=== PATIENT | female | born 1970 | race Caucasian/White ===

== ENCOUNTER 2025-01-14 10:53 | Emergency (ER) | payer BC, SELFPAY ==
--- NOTE | ~2025-01-14 | XR_ITS ---
EXAMINATION: XR knee RT min 4V DATE: 01/14/2025 11:38 INDICATION: Right knee pain post fall 2 weeks prior TECHNIQUE: Anteroposterior, 2 oblique and crosstable lateral views of the right knee were obtained COMPARISON: None. FINDINGS: No fracture. Mild right genu varum with moderate to severe joint space narrowing in the medial compar tment. Moderate size marginal osteophytes in all 3 compartments. No right knee joint effusion. Soft t issues are unremarkable. IMPRESSION: 1. No right knee joint effusion or acute osseous abnormality. 2. Tricompartmental osteoarthritis at the right knee, moderate to severe in the medial compartment. Reviewed, dictated and finalized at location A. [employer]
--- OUTSIDE RECORDS SUMMARY | 2025-01-14 11:09 | XMS_ITS | Clinical Summary ---
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 Okay to return to work with light duty. No heavy lifting greater than 20 lb for 4 weeks. No submerging incisions for 4 weeks. Please call for any further questions or concerns. 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 Gender Identity Not on file Sexual Orientation Not on file Obstetrics History Last Filed Vital Signs Vital Sign Reading Time Taken Comments Blood Pressure 118/72 06/20/2021 5:56 PM CDT Pulse 96 06/20/2021 5:56 PM CDT Temperature 36.6 C (97.8 F) 06/20/2021 5:56 PM CDT Respiratory Rate 16 06/20/2021 5:56 PM CDT Oxygen Saturation 92% 06/20/2021 5:56 PM CDT Inhaled Oxygen Concentration - - Weight 128.4 kg (283 lb) 06/20/2021 5:56 PM CDT Height 157.5 cm (5' 2 ) 06/20/2021 5:56 PM CDT Body Mass Index 51.76 06/20/2021 5:56 PM CDT Plan of Treatment Not on file Insurance [employer] Care Teams Roll Machine Operator Relationship Specialty Start Date End Date Arianne Starks MD [address] [place] [address] [place] [address] PCP - General 12/20/20
--- OUTSIDE RECORDS SUMMARY | 2025-01-14 11:09 | XMS_ITS | Clinical Summary ---
Author Organization [facility] Address [address] [place] [address] Care Team Providers Care Mini Bar Attendant Name Role Phone Unavailable Primary Care Provider Unavailabl e Source Comments [facility],non-owned Affiliates and Associated Physician Practices is amultiple site organization consisting of ambulatory clinics and hospital sitesin [place], [place], [place] and [place]. This disclosure is being madepursuant to the Care Everywhere program and may not contain all information available regarding this patient. Last updated 18.[facility] [employer] Social History Tobacco Use Types Packs/Day Years Used Date Smoking Tobacco: Never Assessed Sex and Gender Information Value Date Recorded Sex Assigned at Not on file Gender Identity Not on file Sexual Orientation Not on file Plan of Treatment Health Maintenance Due Date Last Done Comments COLOGUARD (AGES 45-75) - COL ON CA SCREENING 1972 COLON MONITORING 1972 COLONOSCOPY - COLON CA SCREENING 1972 CT COLONOGRAPHY - COLON CA SCREENING 1972 Colorectal Cancer Screening 1972 FIT - COLON CA SCREENING 1972 FLEX SIG - COLON CA SCREENING 1972 LIPID TESTING 1972 MAMMOGRAM 1972 PAP SMEAR 1972 HIV SCREENING 1987 HEPATITIS C SCREENING 04/14/1990 DTAP/TDAP/TD VACCINES (1 - Tdap) 1991 HEPATITIS B VACCINE (1 of 3 - 19+ 3-dose series) 1991 PNEUMOCOCCAL VACCINE 50+ (1 of 1 - PCV) 2022 ZOSTER VACCINE (1 of 2) 2022 COVID-19 VACCINE (1 - 2023-2 5 season) 2024 INFLUENZA VACCINE (#1) 2024 DEPRESSION SCREENING 11/23/2024 HIB VACCINE Aged Out No longer eligi ble based on patient's age to complete this topic HPV VACCINE Aged Out No longer eligi ble based on patient's age to complete this topic MENINGOCOCCAL (Group B) VACCINE Aged Out No longer eligible based on patient's age to complete this topic MENINGOCOCCAL VACCINE Aged Out No luz marina dez eligible based on patient's age to complete this topic PNEUMOCOCCAL VACCINE Aged Out No long er eligible based on patient's age to complete this topic
--- OUTSIDE RECORDS SUMMARY | 2025-01-14 11:09 | XMS_ITS | Referral Summary ---
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 Okay to return to work with light duty. No heavy lifting greater than 20 lb for 4 weeks. No submerging incisions for 4 weeks. Please call for any further questions or concerns. 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
--- OUTSIDE RECORDS SUMMARY | 2025-01-14 11:09 | XMS_ITS | Referral Summary ---
Author Organization [facility] Address [address] [address] Care Team Providers Care Manager Technical Support Name Role Phone Unavailable Primary Care Provider Unavailabl e Source Comments [facility],non-owned Affiliates and Associated Physician Practices is amultiple site organization consisting of ambulatory clinics and hospital sitesin [place], [place], [place] and [place]. This disclosure is being madepursuant to the Care Everywhere program and may not contain all information available regarding this patient. Last updated 18.[facility] Social History Tobacco Use Types Packs/Day Years Used Date Smoking Tobacco: Never Assessed Sex and Gender Information Value Date Recorded Sex Assigned at Not on file Gender Identity Not on file Sexual Orientation Not on file Plan of Treatment Not on file
--- OUTSIDE RECORDS SUMMARY | 2025-01-14 11:09 | XMS_ITS | Patient Health Summary ---
Author Organization [facility] Address [address] [place] [address] Care Team Providers Care Building Official Name Role Phone Unavailable Primary Care Provider Unavailabl e Note from [facility],non-owned Affiliates and Associated Physician Practices is amultiple site organization consisting of ambulatory clinics and hospital sitesin [place], [place], [place] and [place]. This disclosure is being madepursuant to the Care Everywhere program and may not contain all information available regarding this patient. Last updated 18.[facility] Social History Tobacco Use Types Packs/Day Years Used Date Smoking Tobacco: Never Assessed Sex and Gender Information Value Date Recorded Sex Assigned at Not on file Gender Identity Not on file Sexual Orientation Not on file Procedures * GROSS + MICRO EXAM(Performed 12/08/2002) Results * GROSS + MICRO EXAM (12/08/2002 8:09 AM BUFFER COPPER) Result CASE NUMBER [id number] Comment: ORDERING PHYSICIAN KISHAN MORRIS SPECIMEN TYPE Placenta Date 12/08/2002 Physician Pablito Morris Gross Description The specimen is received fresh in a container labeled with the patient's name and placenta . The specimen consists of two separate placental discs which are attached by a twisted layer of membrane. This area of attachment measures 3.0 x 3.2 cm. One placenta has one clamp and the other placenta has two clamps. There is no designation which placenta represents A or B either on the container and there is no requisition. The placenta with one clamp has attached membranes and cord and weighs 740 grams in aggregate. The placental disc of the placenta with one clamp measures 25.9 x 21.1 cm. and up to 2.0 cm. in thickness. The membranes are of a translucent pinkish-glez color and are attached marginally. The umbilical cord has a somewhat eccentric insertion, inserting up to 7.0 cm. from the nearest margin. It measures 39.5 cm. in length and up to 2.5 cm. in diameter and on cut section, three vessels are identified. The surface has a glistening bluish-glez color with the usual vascular arcade without nodules. The maternal surface is of a soft deep pinkish-glez color with a small amount of adherent clotted blood. On serial sectioning no infarcts are grossly identified. Food And Nutrition Supervisor sections are submitted as follows cassettes A and B, chorioamniotic membranes at site of attachment cassettes C through E, placenta with one clamp, (cassette C is membranes and cord, cassette D is surface, cassette E is maternal surface). The placenta with two clamps has attached membranes and cord which weighs 640 grams in aggregate. The placental disc measures 24.0 x 20.6 cm. and up to 2.0 cm. in thickness. The membranes are of a translucent pinkish-glez color and approximately 2/3 are attached marginally and 1/3 is attached circumvallate. There is a small amount of clotted blood attached to the membranes in the area of the circumvallate attachment. This blood clot measures 4.2 cm. in greatest dimensions. The umbilical cord has a somewhat eccentric insertion, inserting up to 5.5 cm. from the nearest margin and it measures 30.7 cm. in length and up to 2.2 cm. in diameter and on cut section, three vessels are identified. The surface has a glistening bluish-glez color with the usual vascular arcade without nodules. The maternal surface is of a soft deep pinkish-glez color with a small amount of adherent clotted blood. On serial sectioning there are no infarcts grossly identified. Food And Nutrition Supervisor sections of the placenta with two clamps are submitted as follows cassette F, umbilical cord and membranes cassette G, surface cassette H, maternal surface. SNR/bk Microscopic Exam Sections show a twin placenta. The dividing membranes show two layers of amnion and two layers of chorion, therefore it is dichorionic and diamnionic twin placenta. The membranes of both twin placentas are unremarkable. Acute inflammation is not seen. Both umbilical cords show three vessels with no evidence of funisitis or vasculitis. The placental discs of both twins show mature chorionic villi. Syncytial knots and fibrin deposition are seen. Villitis is not observed. Significant hemorrhage or infarction is not seen. MC/bk Diagnosis I. Placenta, removal A. Third trimester diamnionic and dichorionic twin placenta (weight 740 grams). B. Unremarkable membranes. C. Three blood vessel Umbilical cords. Metal Spray Operator bk Pathologist Mala Fallon M.D. / Carlos Alberto Christensen M.D. [place]. 12/09/2002 1104 <1> CPT code 20635 x2 MISCELLANEOUS SAMPLES / Unknown 12/08/2002 8:09 AM BUFFER COPPER 12/08/2002 8:09 AM BUFFER COPPER Historical Provider LAB - PATHOLOGY/C YTOLOGY ORDERABLES
--- OUTSIDE RECORDS SUMMARY | 2025-01-14 11:10 | XMS_ITS | Data Portability ---
Author Organization [facility], Main Office Address [address] [place] [address] Assessment No assessment recorded. Plan of Treatment Reminders Order Date Submit Date Provider Last Modified By Organization Details Last Modified Time Details Appointments Follow Up 2024 01:30P CHELA Soni Not available Not available Not available Lab HbA1c (hemoglob in A1c), blood 2023 024 MELCHOR [email or web address] [facility], [address] [place], [address], 08/15/2024 10:57:09 hemoglobi n A1C, fingersti ck 2022 [email or web address], [place], [address], 04/22/2023 18:05:30 noninvasi ve colorecta l cancer DNA + occult blood screening , QL, stool 2022 023 Room 77 (Cologuard Orders Only), [address], [address], [place], [address], 02/25/2023 08:16:27 CMP, serum or plasma 2022 023 [employer], [address] [place], [address], 02/25/2023 08:16:26 lipid panel, serum 2022 023 [email or web address] [facility], [address] [place], [address], 02/25/2023 08:16:27 Referral None recorded. Procedures None recorded. Surgeries None recorded. Imaging MAMMO, screening , digital, bilateral 2022 023 [email or web address] [facility] (Radiology), [address] [place] [address] [place], [address], 03/04/2023 08:23:17 Medication Orders Wegovy 0.25 mg/0.5 mL subcutane ous pen injector 2023 024 [email or web address] [id number], [address] [facility], [place], [address], 10/05/2024 11:34:41 Wegovy 0.5 mg/0.5 mL subcutane ous pen injector 2022 023 [email or web address] [facility] [address] [facility], [facility] [address] M Leigh Luisrody, [place], [place], [id number], 08/11/2024 14:39:18 Wegovy 0.25 mg/0.5 mL subcutane ous pen injector 2022 023 [email or web address] [facility] [address] In [facility], [facility] [place] [place], [id number], 10/05/2024 11:34:41 Patient TargetsNo targets recorded. Patient InstructionsNo instructions recorded. Reason for Referral None Reported. Results Created Date Observation Date Name Description Value Unit Range Abnormal Flag Note LastModifiedBy Organization Detail LastModifiedTime 02/29/2003/01/2023 LIPID PANEL (REFL ) cholesterol, total 160 mg/dL <200 normal Not Available [email or web address] [facility] [address] [place], [address], 03/01/2023 09:50:33 02/29/2003/01/2023 LIPID PANEL (REFL ) HDL cholesterol 55 mg/dL > or = 50 normal Not Available [address] [place] , [place], [address], 03/01/2023 09:50:33 02/29/2003/01/2023 LIPID PANEL (REFL ) triglyceride s 71 mg/dL <150 normal Not Available [address] [address] [place], [address], 03/01/2023 09:50:33 02/29/20 23 03/01/2023 LIPID PANEL (REFL ) LDL-choleste rol 89 mg/dL _(justin c) normal Refer ence range : <100 Doris able range <100 mg/dL for prima ry preve ntion ; <70 mg/dL for patie nts with CHD or diabe tic patie nts with > or = 2 CHD risk facto rs. LDL-C is now calcu lated using the Rain n-Hop kins calcu renetta n, which is a valid ated novel duy mchugh r accur acy than the Fried sherry equat ion in the estim ation of LDL-C . Rain ochoa SS et al. VALE. 2013; 310(1 9): 2061- 2068 (http ://ed ucati on.Qu Cristian Axentra. com/f aq/FA Q164) Not Available [address] [address] [address] , [place], [address], 03/01/2023 09:50:33 02/29/2003/01/2023 LIPID PANEL (REFL ) chol/HDLC ratio 2.9 (calc ) <5.0 normal Not Available [address] [place] [address] [place], [address], 03/01/2023 09:50:33 02/29/2003/01/2023 LIPID PANEL (REFL ) non HDL cholesterol 105 mg/dL _(justin c) <130 normal For patie nts with diabe peter plus 1 major ASCVD risk facto r, treat ing to a non-H DL-C goal of <100 mg/dL (LDL- C of <70 mg/dL ) is consi dered a thera pemagdyi c optio n. Not Available [address] [place] [address] [place], [address], 03/01/2023 09:50:33 02/29/2003/01/2023 COMPR EHENS CLARK METAB OLIC PANEL glucose 117 mg/dL 65-99 high Fasti ng refer ence inter terrence For someo ne witho ut known diabe peter, a gluco se value betwe en 100 and 125 mg/dL is consi stent with predi abete s and shoul d be confi rmed with a follo w-up test. Not Available [address] [address] [place], [address], 03/01/2023 09:50:34 02/29/2003/01/2023 COMPR EHENS CLARK METAB OLIC PANEL urea nitrogen (BUN) 11 mg/dL 7-25 normal Not Available [address] [address] [place], [address], 03/01/2023 09:50:34 02/29/20 23 03/01/2023 COMPR EHENS CLARK METAB OLIC PANEL creatinine 0.56 mg/dL 0.50-1 .03 normal Not Available [address] [address] [place], [address], 03/01/2023 09:50:34 02/29/2003/01/2023 COMPR EHENS CLARK METAB OLIC PANEL eGFR 111 mL/mi n/1.7 3m2 > or = 60 normal The eGFR is based on the CKD-E PI 2020 equat ion. To calcu late the new eGFR from a previ ous Creat inine or Cysta tin C resul t, go to https ://magda sweeney/morteza guthrie/ kdoqi /gfr% 5Fcal culat or Not Available [address] [address] [place], [address], 03/01/2023 09:50:34 02/29/20 23 03/01/2023 COMPR EHENS CLARK METAB OLIC PANEL BUN/creatini ne ratio NOT APPLIC ABLE (calc ) 6-22 Not Available [address], [address], 03/01/2023 09:50:34 02/29/20 23 03/01/2023 COMPR EHENS CLARK METAB OLIC PANEL sodium 138 mmol/ L 135-14 6 normal Not Available [address], [address], 03/01/2023 09:50:34 02/29/20 23 03/01/2023 COMPR EHENS CLARK METAB OLIC PANEL potassium 4.5 mmol/ L 3.5-5. 3 normal Not Available [address], [address], 03/01/2023 09:50:34 02/29/20 23 03/01/2023 COMPR EHENS CLARK METAB OLIC PANEL chloride 102 mmol/ L 98-110 normal Not Available [address], [address], 03/01/2023 09:50:34 02/29/20 23 03/01/2023 COMPR EHENS CLARK METAB OLIC PANEL carbon dioxide 28 mmol/ L 20-32 normal Not Available [address], [address], 03/01/2023 09:50:34 02/29/20 23 03/01/2023 COMPR EHENS CLARK METAB OLIC PANEL calcium 9.3 mg/dL 8.6-10 .4 normal Not Available [address], [address], 03/01/2023 09:50:34 02/29/20 23 03/01/2023 COMPR EHENS CLARK METAB OLIC PANEL protein, total 7.0 g/dL 6.1-8. 1 normal Not Available [address], [address], 03/01/2023 09:50:34 02/29/20 23 03/01/2023 COMPR EHENS CLARK METAB OLIC PANEL albumin 4.0 g/dL 3.6-5. 1 normal Not Available [address], [address], 03/01/2023 09:50:34 02/29/20 23 03/01/2023 COMPR EHENS CLARK METAB OLIC PANEL globulin 3.0 g/dL_ (calc ) 1.9-3. 7 normal Not Available [address], [address], 03/01/2023 09:50:34 02/29/20 23 03/01/2023 COMPR EHENS CLARK METAB OLIC PANEL albumin/glob ulin ratio 1.3 (calc ) 1.0-2. 5 normal Not Available [address], [address], 03/01/2023 09:50:34 02/29/20 23 03/01/2023 COMPR EHENS CLARK METAB OLIC PANEL bilirubin, total 0.4 mg/dL 0.2-1. 2 normal Not Available [address], [address], 03/01/2023 09:50:34 02/29/2003/01/2023 COMPR EHENS CLARK METAB OLIC PANEL alkaline phosphatase 88 U/L 37-153 normal Not Available [address], [address], 03/01/2023 09:50:34 02/29/20 23 03/01/2023 COMPR EHENS CLARK METAB OLIC PANEL AST 16 U/L 10-35 normal Not Available [address], [address], 03/01/2023 09:50:34 02/29/20 23 03/01/2023 COMPR EHENS CLARK METAB OLIC PANEL ALT 17 U/L 6-29 normal Not Available [email or web address] [facility] [address] [place], [address], 03/01/2023 09:50:34 03/13/2003/13/2023 COLOG UARD cologuard result reportable NEGATI VE negati ve NEGAT CLARK TEST RESUL T. A negat clark Colog uard resul t indic ates a low likel ihood that a color ectal cance r (CRC) or advan lillian adeno ma (dee dee omato us polyp s with more advan lillian pre-m align ant featu res) is prese nt. The chanc e that a perso n with a negat clark Colog uard test has a color ectal cance r is less than 1 in 1500 (nega tive predi ctive value >99.9 %) or has an advan lillian adeno ma is less than 5.3% (nega tive predi ctive value 94.7% ). These data are based on a prosp ectiv e cross -sect ional study of 10,00 0 indiv idual s at [place] [facility] risk for color ectal cance r who were scree aleta with both Colog uard and colon oscop y. (Estefani Kwong et al, N Engl J Med 2014; 370(1 4):12 86-12 97) The sarah l value (refe rence range ) for this assay is negat clark. COLOG UARD RE-SC REENI NG RECOM MENDA TION: Perio dic color ectal cance r scree helder is an impor tant part of preve ntive healt hcare for asymp tomat ic indiv idual s at [place] [facility] risk for color ectal cance r. Follo wing a negat clark Colog uard resul t, the Ameri can Cance r Socie ty and U.S. Multi -Soci ety Task Force scree helder guide lines recom mend a Colog uard re-sc reeni ng inter terrence of 3 years . Refer ences : Ameri can Cance r Socie ty Guide line for Color ectal Cance r Scree helder: https ://ww w.can cer.o rg/ca ncer/ colon -rect al-ca ncer/ detec tion- diagn osis- stagi ng/ac s-rec ommen datio ns.ht ml.; Babka DK, Say lopez CR, Ryan RamosK, Color ectal Cance r Scree helder: Recom menda tions for Physi cians and Patie nts from the U.S. Multi -Soci ety Task Force on Color ectal Cance r Scree helder , Serena Colindres oente rolog y 2017; 112:1 016-1 030. TEST DESCR IPTIO N: [place] site algor ithmi c enrico sis of stool DNA-b larissa staples with hemog lobin immun oassa y. Quant itati ve value s of indiv idual bioma rkers are not repor table and are not assoc iated with indiv idual bioma rker resul t refer ence range s. Colog uard is inten ded for color ectal cance r scree helder of adult s of eithe r sex, 45 years or older , who are at [facility] for color ectal cance r (CRC) . Colog uard has been appro lorenzo for use by the U.S. FDA. The perfo rmanc e of Colog uard was estab lishe d in a cross secti onal study of [facility] adult s aged 50-84 . Colog uard perfo rmanc e in patie nts ages 45 to 49 years was estim ated by sub-g roup enrico sis of near- age group s. Colon oscop ies perfo rmed for a posit clark resul t may find as the most clini yelitza signi ficzulema t lesio n: color ectal cance r [4.0% ], advan lillian adeno ma (incl uding sessi le malcom vincent polyp s great er than or equal to 1cm diame ter) [20%] or non- advan lillian adeno ma [31%] ; or no color ectal neopl zoran [45%] . These estim ates are deriv ed from a prosp ectiv e cross -sect ional scree helder study of 10,00 0 indiv [facility]ual [facility] risk for color ectal cance r who were scree aleta with both Colog uard and colon oscop y. (Estefani Mccray al, N Engl J Med 2014; 370(1 4):12 86-12 97.) Colog uard may produ ce a false negat clark or false posit clark resul t (no color ectal cance r or preca ncero us polyp prese nt at colon oscop y follo w up). A negat clark Colog uard test resul t does not guara ntee the absen ce of CRC or advan lillian adeno ma (pre- cance r). The curre nt Colog uard scree helder inter terrence is every 3 years . (Amer ican Cance r Socie ty and U.S. Multi -Soci ety Task Force ). Colog uard perfo rmanc e data in a 0 patie nt pivot al study using colon oscop y as the refer ence metho d can be acces sed at the follo wing locat ion: www.e xactl abs.c om/re sults . Addit ional descr iptio n of the Colog uard test proce ss, warni ngs and preca ution s can be found at www.c ologu jorje.c om. Not Available [facility] (Cologuard Orders Only) [address], [place], [address], 03/23/2023 18:14:10 04/22/20 23 04/22/2023 hemog lobin A1C, finge rstic k HgbA1C 6 Not Available [facility] [address], [place], [address], 04/22/2023 16:54:32 Result Notes None recorded. Problems Name Problem SNOMED Code Status Onset Date Resolution Date Notes Provider Name and Address Organization Details Recorded Time Morbid obesity 493050600 Active Not Available [employer] 4 11:57:11 Headache 80946985 Active Not Available [employer] 01/25/202 4 11:57:11 Low back pain 563970735 Active Not Available [facility] 4 11:57:11 Carpal tunnel syndrome 15262485 Active Not Available [facility] 4 11:57:11 Neck pain 52691774 Active Not Available [facility] 4 11:57:11 Obesity 272057561 Active 2022 Not Available [facility] 4 11:57:11 Impaired fasting glycemia 219376859 Active 2022 Not Available [facility] 4 11:57:11 Essential hypertension 13577380 Active 2022 Not Available [facility] 4 11:57:11 Type 2 diabetes mellitus without complication 052039098 Active 2022 Not Available [facility] 4 11:57:11 Adult health examination Active 2023 CHELA Carbone [address] [facility] [address], [place], [address] , [employer] 4 16:10:37 Problem Notes None recorded. Procedures Surgical History Date Name Laterality Status Provider Name and Address Organization Details Recorded Time 11/23/19 20 cholecystectomy completed Diana Navarrete RN [employer] 08/11/2024 14:42:54 Imaging Results None recorded. Procedure Notes None recorded. Medical Equipment None Reported. Allergies Allergen ID Allergen Name Allergen Category Reaction Reaction Severity Criticality Documentation Date Start Date Code Code System Note Provider Name and Address Organization Details Recorded Time 40135 aspirin medicatio n Not available Not available Not available 08/11/20242009 1191 RxNorm Milka Chandan Simmons, [employer] 4 15:37:16 Medications Name Sig Start Date Stop Date Status Note LastModified by Organization Details LastModified Time cyclobenzap rine 10 mg tablet Take 1 tablet 3 times a day by oral route. 02/10 completed Not Available Not Available Not Available valacyclovi r 1 gram tablet TAKE TWO TABLETS BY MOUTH EVERY 12 HOURS FOR 1 DAY active Not Available Not Available No t Available hydrocodone 5 mg-acetamin ophen 325 mg tablet Take 1-2 TABLET EVERY4- 6 HOURS by oral route. active Not Available Not Available No t Available phentermine 37.5 mg tablet TAKE 1 TABLET BY MOUTH EVERY DAY IN THE MORNING 08/11 completed Not Available Not Available Not Available sulfamethox azole 800 mg-trimetho prim 160 mg tablet TAKE 1 TABLET(S) EVERY 12 HOURS BY MOUTH 06/16 completed Not Available Not Available Not Available tramadol 50 mg tablet 02/10 completed Not Available Not Available Not Available amoxicillin 875 mg tablet 11/10 completed Not Available Not Available Not Available neomycin-po lymyxin-dex ameth 3.5 mg/mL-10,00 0 unit/mL-0.1 % eye drops INSTILL 1 DROP INTO AFFECTED EYE(S) BY OPHTHALMI C ROUTE EVERY 3-4 HOURS 06/16 completed Not Available Not Available Not Available hydrochloro thiazide 12.5 mg capsule TAKE 1 CAPSULE BY MOUTH EVERY DAY active Not Available Not Available No t Available methylpredn isolone 4 mg tablets in a dose pack 02/18 completed Not Available Not Available Not Available amoxicillin 875 mg-potassiu m clavulanate 125 mg tablet Take 1 tablet every 12 hours by oral route. 02/18 completed Not Available Not Available Not Available Wegovy 1 mg/0.5 mL subcutaneou s pen injector Inject 1 mg every week by subcutane ous route. 08/11 completed Not Available Not Available Not Available Wegovy 0.25 mg/0.5 mL subcutaneou s pen injector INJECT 0.5 MG SUBCUTANE OUSLY EVERY WEEK 10/05 completed Not Available Not Available Not Available Wegovy 0.5 mg/0.5 mL subcutaneou s pen injector Inject 0.5 mg every week by subcutane ous route. 08/11 completed Not Available Not Available Not Available Mounjaro 5 mg/0.5 mL subcutaneou s pen injector Inject 5 mg every week by subcutane ous route as directed for 28 days. active Not Available Not Available No t Available Mounjaro 2.5 mg/0.5 mL subcutaneou s pen injector INJECT 2.5 MG EVERY WEEK BY SUBCUTANE OUS ROUTE DIRECTED FOR 28 DAYS. 11/10 completed Not Available Not Available Not Available Ozempic 0.25 mg or 0.5 mg (2 mg/3 mL) subcutaneou s pen injector Inject by subcutane ous route for 28 days. active Not Available Not Available No t Available Vitals Date Recorded Body weight Body mass index (BMI) Body height Body temperature Heart rate Oxygen saturation Oxygen saturation in Arterial blood by Pulse oximetry Systolic blood pressure Diastolic blood pressure Provider Name and Address Organization Details Last Updated DateTime 3 044015. 46 g 49.8 kg/m2 160.02 cm 97.6 [degF] 109 /min 97 % 97 % 144 mm[Hg] 100 mm[Hg] ALVIN Da Silva [employer] [facility] 3 16:19:02 Date Recorded Body height Body mass index (BMI) Body weight Body temperature Heart rate Oxygen saturation Oxygen saturation in Arterial blood by Pulse oximetry Systolic blood pressure Diastolic blood pressure Provider Name and Address Organization Details Last Updated DateTime 3 160.02 cm 47.5 kg/m2 318964. 76 g 97.8 [degF] 87 /min 98 % 98 % 150 mm[Hg] 80 mm[Hg] ALVIN Da Silva [employer] [facility] 3 16:49:13 Date Recorded Body weight Body temperature Heart rate Oxygen saturation Oxygen saturation in Arterial blood by Pulse oximetry Systolic blood pressure Diastolic blood pressure Provider Name and Address Organization Details Last Updated DateTime 4 789695. 24 g 98 [degF] 86 /min 97 % 97 % 140 mm[Hg] 92 mm[Hg] February Cahndan Simmons [employer] 4 14:38:10 Date Recorded Body height Body mass index (BMI) Body weight Body temperature Heart rate Oxygen saturation Oxygen saturation in Arterial blood by Pulse oximetry Systolic blood pressure Diastolic blood pressure Provider Name and Address Organization Details Last Updated DateTime 4 160.02 cm 47.5 kg/m2 600878. 76 g 97.7 [degF] 86 /min 97 % 97 % 142 mm[Hg] 86 mm[Hg] Diana Navarrete RN [facility] [employer] 14:18:12 Social History None recorded. Functional Status None recorded. Mental Status None recorded. Family History Nothing Reported. Medical History No medical history recorded. Gynecological HistoryNo gynecological history recorded. Obstetrics History GPAL:G 0 P 0 0 0 0 Past Encounters Encounter ID Performer Location Encounter Start Date Encounter Closed Date Diagnosis/Indication Diagnosis SNOMED-CT Code Diagnosis ICD10 Code Diagnosis Note [id number] Arianne Starks MD [facility] [address] [place] [address] [place] [address] 02/18/2023 16:09:41 02/18/2023 16:59:49 Adult health examination 749187722 Z00.00 Screening for malignant neoplasm of breast 913865167 Z12.39 Screening for malignant neoplasm of colon 151314310 Z12.11 Obesity 602271476 E66.9 [id number] Arianne Starks MD [facility] [address] [facility] [place] [address] 04/22/2023 16:43:12 04/22/2023 17:13:09 Obesity 948304229 E66.9 F/u in 3 months. Call for refills of wegovy titrating dose. Impaired f asting glycemia 147249651 R73.01 A1C is 6% Watch carbs in diet and continue weight loss. She is prediabeti c. Essential hypertension 38147050 I10 Continue HCT and watch salt in diet. [id number] CHELA Carbone [facility] [address] [place] [address] [place] [address] 08/11/2024 14:23:31 08/11/2024 14:54:40 Morbid obesity 611193792 E66.01 Adult [facility] th examination 025594782 Z00.00 Essential hypertension 88096754 I10 Low back pain 108032807 M54.50 Type 2 cristina betes mellitus without complication 482928417 E11.9 [id number] CHELA Carbone [address] [place] [address] [place] [address] 11/10/2024 14:09:39 11/10/2024 14:43:21 Essential hypertension 12481961 I10 Low back pain 512495545 M54.50 Morbid obesity 033941186 E66.01 Type 2 cristina betes mellitus without complication 530729580 E11.9 Health Concerns Section Related Observation LastModified by Organization Detai ls LastModified Time None Recorded Concern Status LastModified by Organization Details LastModified Time None Recorded Advance Directives Directive None Recorded Payers Encounter Date Sequence Insurance Name Policy Number Policy Acevedo Covered Member ID Acevedo Member ID Guarantor Name 02/18/2023 1 [place] [id number] G Jessica A Pina [id number] Jessica Pina 04/22/2023 1 [place] [id number] G Jessica A Pina [id number] Jessica Pina 08/11/2024 1 [place] [id number] G Jessica A Pina [id number] Jessica Pina 11/10/2024 1 [place] [id number] G Jessica A Pina [id number] Jessica Pina Notes Date Note Type Note Provider Name and Address Organization Details Recorded Time 02/18/2023 text/html Here for annual physical. Has put on weight and trying to lose weight. BP is high. No headaches or dizziness. Needs BW ordered. Needs mammogram. Not UTD with colon cancer screening. No fmhx of colon cancer. Pt needs something to lose weight Arianne Starks MD [address], [place], [address], [employer] 02/18/2023 22:02:21 04/22/2023 text/html Here today for weight check and A1C check. Doing ok with the wegovy. Her fasting BS was elevated at 117. Needs A1C checked for this reason. Arianne Starks MD [address], [address], [place], [address], [employer] 04/22/2023 18:07:24 08/11/2024 text/html lost grand baby , hlhs , passed cardiac arrest CHELA Carbone [address] [facility] [address], [place], [address], [facility] [employer] [facility] 08/29/2024 16:12:09 11/10/2024 text/html no changes CHELA Carbone [address], [place], [address], [facility] [employer] [facility] [employer] [facility] 11/26/2024 17:21:57 OBGyn Episode No OBEpisode recorded.
[2025-01-14 11:11] VITALS: BP 152/86; PULSE 91; RESP 20; TEMP 36.8; O2SAT 100
--- NOTE | 2025-01-14 11:52 | ED.GENADULT ---
HPI - General Adult General Chief complaint: Extremity Injury, Lower Stated complaint: right knee Source: patient Mode of arrival: ambulatory Limitations: no limitations History of Present Illness HPI narrative: Pt presents for right knee pain. Symptom onset a few weeks ago after she fell while walking her dogs. She hit her knee against the ground. She initially had bruising to the area. Pain has persisted since that time. She rates her symptoms as 5/10 in severity. She has associated tingling. She has taken ibuprofen for headaches but not for her knee pain to know if it makes a difference in her pain rating. She has not taken any other medications for her symptoms. She is able to bear weight on the extremity and denies loss of ROM. Related Data Home Medications ?Medication ?Instructions ?Recorded ?Confirmed ?Last Taken ?Type hydrochlorothiazide 12.5 mg capsule mg 01/14/25 Unknown History tirzepatide 5 mg/0.5 mL mg subcut 01/14/25 Unknown History subcutaneous pen injector (Mounjaro) Allergies Allergy/AdvReac Type Severity Reaction Status Date / Time aspirin Allergy Unknown Unknown Verified 01/14/25 11:15 Review of Systems Review of Systems: CONSTITUTIONAL: Denies fever, chills, or sweats. EYES: Denies visual changes, redness, or discharge. ENT: Denies rhinorrhea, congestion, sore throat, or otalgia. CARDIOVASCULAR: Denies chest pain, palpitations, or edema. RESPIRATORY: Denies cough or dyspnea. GASTROINTESTINAL: Denies abdominal pain, nausea, vomiting, or diarrhea. GENITOURINARY: Denies dysuria or hematuria. SKIN: Denies rash or itching. MUSCULOSKELETAL: Reports right knee pain. Denies other joint pain. NEUROLOGIC: Denies headache, numbness, dizziness, or weakness. PSYCHIATRIC: Denies anxiety or depression. [facility] Past Medical History Medical History Hyperglycemia Surgical History Surgical History History of Family History Family History Mother Family history non-contributory Social History Social History Smoking status: Never smoker Gender identity (if verbalized by the patient): Female Sexual Orientation (if Verbalized by the Patient): Straight or Heterosexual Spiritual care concerns: No Exam Narrative: GENERAL: Well-appearing, well-nourished, and in no acute distress. HEAD: Normocephalic, atraumatic. EYES: PERRLA and EOMI. ENT: Nares clear, no rhinorrhea or epistaxis. Mucous membranes moist. Oropharynx without tonsillar hypertrophy exudate or other lesions. Bilateral TMs pearly glez nonbulging NECK: Supple. No adenopathy or masses. No carotid bruits or JVD CHEST: Clear to auscultation. No respiratory distress. No wheezes rales or rhonchi HEART: Regular rate and rhythm. No murmur heard. Normal peripheral pulses. ABDOMEN: Soft, nontender, nondistended, normal active bowel sounds. EXTREMITIES: Full ROM of right knee. There is crepitus in the right knee. Anterolateral aspect of the right knee is tender to palpation. SKIN: Warm, dry, no rash. NEURO: No focal deficits. Alert and oriented x3. PSYCH: Normal mood and affect. Course Course Emergency Course: This is a 54 year old female who presented for evaluation of right knee pain. X ray showed arthritic changes. Due to persistent nature of her pain, I recommended she follow up with ortho to determine whether additional imaging such as MRI is clinically warranted. I advised she get a hinge knee brace. Application of voltaren gel should help. Advised on RICE therapy. Go to the ER for intractable pain. Pt in agreement with plan of care. Level of Care: Express Care Visit Vital Signs Vital signs: Vital Signs Temperature 36.8 C 01/14/25 11:11 Pulse Rate 91 01/14/25 11:11 Respiratory Rate 20 01/14/25 11:11 Blood Pressure 152/86 H 01/14/25 11:11 Pulse Oximetry 100 01/14/25 11:11 Oxygen Delivery Room Air 01/14/25 11:11 Temperature 36.8 C 01/14/25 11:11 Pulse Rate 91 01/14/25 11:11 Respiratory Rate 20 01/14/25 11:11 Blood Pressure 152/86 H 01/14/25 11:11 Pulse Oximetry 100 01/14/25 11:11 Oxygen Delivery Room Air 01/14/25 11:11 Medical Decision Making Vital Signs Vital Signs: Vital Signs Temperature 36.8 C 01/14/25 11:11 Pulse Rate 91 01/14/25 11:11 Respiratory Rate 20 01/14/25 11:11 Blood Pressure 152/86 H 01/14/25 11:11 Pulse Oximetry 100 01/14/25 11:11 Oxygen Delivery Room Air 01/14/25 11:11 Temperature 36.8 C 01/14/25 11:11 Pulse Rate 91 01/14/25 11:11 Respiratory Rate 20 01/14/25 11:11 Blood Pressure 152/86 H 01/14/25 11:11 Pulse Oximetry 100 01/14/25 11:11 Oxygen Delivery Room Air 01/14/25 11:11 Imaging Data Radiologist's impression: EXAMINATION: XR knee RT min 4V DATE: 01/14/2025 11:38 INDICATION: Right knee pain post fall 2 weeks prior TECHNIQUE: Anteroposterior, 2 oblique and crosstable lateral views of the right knee were obtained COMPARISON: None. FINDINGS: No fracture. Mild right genu varum with moderate to severe joint space narrowing in the medial compartment. Moderate size marginal osteophytes in all 3 compartments. No right knee joint effusion. Soft tissues are unremarkable. IMPRESSION: 1. No right knee joint effusion or acute osseous abnormality. 2. Tricompartmental osteoarthritis at the right knee, moderate to severe in the medial compartment. Discharge Plan Discharge Clinical Impression: Strain of right knee, Contusion Patient Disposition: Home, Self-Care Condition: Stable Instructions: Antibiotic Form, Muscle Strain (ED), Contusion in Adults (ED) Additional Instructions: DICLOFENAC GEL(VOLTAREN) IS SOLD OVER THE COUNTER AND SHOULD HELP WITH PAIN AND SWELLING KEEP LEG ELEVATED WHEN NOT AMBULATING APPLICATION OF ICE SHOULD HELP YOU MAY WANT TO PURCHASE A KNEE BRACE-SUCH A HINGE KNEE BRACE-FROM A MEDICAL SUPPLY STORE TO WEAR PLEASE FOLLOW UP WITH ORTHOPEDICS TO DETERMINE WHETHER ADDITIONAL IMAGING IS CLINICALLY WARRANTED. Patient Language: Upper Sorbian Prescriptions: No Action hydrochlorothiazide 12.5 mg capsule Mounjaro 5 mg/0.5 mL pen injector SUBCUT Follow-up/Referrals: Kushal Castle MD [Physician] - Time of Disposition: 12:04
== END 2025-01-14 12:11 | disposition home or self-care (01) ==
PROVIDERS: Emergency Provider Nurse Practitioner
DX: S86.811A Strain of other muscle(s) and tendon(s) at lower leg level, right leg, initial encounter (principal); S80.01XA Contusion of right knee, initial encounter; W18.30XA Fall on same level, unspecified, initial encounter; Y93.K1 Activity, walking an animal
CPT/HCPCS: 73564; 99203; G0463